=== PATIENT | male | born 1970 | race Caucasian/White ===

== ENCOUNTER → 2017-01-26 | Outpatient (REF) | payer OTHER | LOC: M SFHCPLAZ 17:08 | PROVIDERS: ATTEND Student in an Organized Health Care Education/Training Program | DX: L73.9 Follicular disorder, unspecified (principal); L02.213 Cutaneous abscess of chest wall; D36.7 Benign neoplasm of other specified sites ==

== ENCOUNTER → 2018-03-25 | Outpatient (CLI) | payer BC, OTHER | LOC: M WUC 15:17 | DX: M51.36 Other intervertebral disc degeneration, lumbar region (principal); M51.37 Other intervertebral disc degeneration, lumbosacral region | CPT/HCPCS: 72110 ==

== ENCOUNTER 2018-09-13 16:49 | Emergency (ER) | payer BC, OTHER ==
[2018-09-13] MEDS: MECLIZINE 25 MG TABLET PO (18:12)
[2018-09-13] MEDS: NS 1,000 ML IV (18:13)
[2018-09-13] MEDS: ONDANSETRON 4MG/2ML VIAL (J2405) IV (18:15)
[2018-09-13 18:31] LABS: BASO % 0.3 % (0.0-1.0); EOS # 0.2 10^3/uL (0.0-0.50); EOS % 2.6 % (0.0-3.0); HEMATOCRIT 45.8 % (42.0-52.0); HEMOGLOBIN 15.9 g/dl (13.5-17.5); IMMATURE GRANULOCYTE % 0.7 % (0-3.0); LYMPH # 1.5 10^3/uL (1.5-4.5); MEAN CORPUSCULAR HEMOGLOBIN 30.6 pg (27.0-33.0); MEAN CORPUSCULAR HGB CONC 34.7 g/dl (32.0-36.5); MEAN CORPUSCULAR VOLUME 88.1 fl (80.0-96.0); MONO # 0.5 10^3/uL (0.0-0.8); MONO % 8.9 % (0.0-5.0); NEUTROPHILS # 3.5 10^3/uL (1.8-7.7); NEUTROPHILS % 61.5 % (36.0-66.0); PLATELET COUNT, AUTOMATED 240 10^3/uL (150-450); RED CELL DISTRIBUTION WIDTH 11.6 % (11.5-14.5); WHITE BLOOD COUNT 5.7 10^3/uL (4.0-10.0)
[2018-09-13 19:01] LABS: ANION GAP 8 MEQ/L (8-16); BLOOD UREA NITROGEN 22 MG/DL (7-18); CALCIUM LEVEL 8.6 MG/DL (8.5-10.1); CARBON DIOXIDE LEVEL 28 MEQ/L (21-32); CHLORIDE LEVEL 102 MEQ/L (98-107); CREATININE FOR GFR 0.98 MG/DL (0.70-1.30); GLOMERULAR FILTRATION RATE > 60.0 (>56); GLUCOSE, FASTING 92 MG/DL (70-100); POTASSIUM SERUM 3.7 MEQ/L (3.5-5.1); SODIUM LEVEL 138 MEQ/L (136-145)
[2018-09-13 19:06] LABS: CPK CREATINE PHOSPHOKINASE 144 U/L (39-308); TROPONIN I < 0.02 NG/ML (< 0.10)
== END 2018-09-13 20:22 | disposition home or self-care (01) ==
LOC: M ED 16:49
DX: R03.0 Elevated blood-pressure reading, without diagnosis of hypertension (principal); R42 Dizziness and giddiness; R11.0 Nausea; M54.9 Dorsalgia, unspecified; Z88.0 Allergy status to penicillin
CPT/HCPCS: J2405

== ENCOUNTER → 2019-11-24 | Outpatient (CLI) | payer BC, OTHER ==
[~2019-11-24] MED LIST: LISI-542 PO; MECL-68 PO; ZOFR4TAB14 PO
--- NOTE | 2019-11-24 16:54 | REP ---
Two-view chest: 11/24/2019. Indication: Dyspnea. Comparison: 09/13/2018. Findings: The lungs are clear. There is no pleural effusion or pneumothorax. The cardiomediastinal silhouette is unremarkable. Impression: No acute cardiopulmonary process. Electronically Signed by Ash De La Rosa DO 11/24/2019 04:24 P
[2019-11-24 20:36] LABS: BASO # 0.1 10^3/uL (0.0-0.2); BASO % 0.9 % (0.0-1.0); EOS # 0.2 10^3/uL (0.0-0.5); EOS % 3.1 % (0.0-3.0); HEMOGLOBIN 15.5 g/dl (13.5-17.5); LYMPH # 2.1 10^3/uL (1.5-5.0); MEAN CORPUSCULAR HEMOGLOBIN 29.8 pg (27.0-33.0); MEAN CORPUSCULAR HGB CONC 33.7 g/dl (32.0-36.5); MEAN CORPUSCULAR VOLUME 88.5 fl (80.0-96.0); MONO # 0.5 10^3/uL (0.0-0.8); MONO % 8.9 % (0.0-5.0); NEUTROPHILS # 2.9 10^3/uL (1.5-8.5); NEUTROPHILS % 50.4 % (36.0-66.0); PLATELET COUNT, AUTOMATED 244 10^3/uL (150-450); WHITE BLOOD COUNT 5.8 10^3/uL (4.0-10.0)
[2019-11-24 20:48] LABS: ALBUMIN 3.9 GM/DL (3.2-5.2); ALT/SGPT 43 U/L (12-78); BILIRUBIN,TOTAL 0.4 MG/DL (0.2-1.0); BLOOD UREA NITROGEN 11 MG/DL (7-18); CALCIUM LEVEL 8.7 MG/DL (8.5-10.1); CARBON DIOXIDE LEVEL 29 MEQ/L (21-32); CHLORIDE LEVEL 105 MEQ/L (98-107); CREATININE FOR GFR 0.97 MG/DL (0.70-1.30); FREE T4 0.75 NG/DL (0.76-1.46); GLOMERULAR FILTRATION RATE > 60.0 (>56); GLUCOSE, FASTING 87 MG/DL (70-100); NT-PRO BNP 6 PG/ML (<125); POTASSIUM SERUM 4.3 MEQ/L (3.5-5.1); SODIUM LEVEL 140 MEQ/L (136-145); TOTAL PROTEIN 7.7 GM/DL (6.4-8.2)
== END ==
LOC: M WUC 16:10
PROVIDERS: ATTEND Physician Assistant
DX: R53.83 Other fatigue (principal); R06.02 Shortness of breath

== ENCOUNTER → 2020-06-12 | Outpatient (CLI) | payer BC, OTHER ==
[~2020-06-12] MED LIST changes: -MECL-68 PO; +MECL1TAB31 PO
[2020-06-12 17:38] LABS: BASO % 0.5 % (0.0-1.0); EOS # 0.1 10^3/uL (0.0-0.5); EOS % 2.4 % (0.0-3.0); HEMATOCRIT 46.5 % (42.0-52.0); HEMOGLOBIN 15.5 g/dl (13.5-17.5); LYMPH # 1.4 10^3/uL (1.5-5.0); LYMPH % 24.6 % (24.0-44.0); MEAN CORPUSCULAR HEMOGLOBIN 30.7 pg (27.0-33.0); MEAN CORPUSCULAR HGB CONC 33.3 g/dl (32.0-36.5); MEAN CORPUSCULAR VOLUME 92.1 fl (80.0-96.0); MONO # 0.6 10^3/uL (0.0-0.8); MONO % 10.1 % (0.0-5.0); NEUTROPHILS # 3.4 10^3/uL (1.5-8.5); PLATELET COUNT, AUTOMATED 224 10^3/uL (150-450); RED BLOOD COUNT 5.05 10^6/uL (4.30-6.10); WHITE BLOOD COUNT 5.5 10^3/uL (4.0-10.0)
[2020-06-12 17:41] LABS: ALBUMIN 3.9 GM/DL (3.2-5.2); ALT/SGPT 28 U/L (12-78); BILIRUBIN,TOTAL 0.5 MG/DL (0.2-1.0); BLOOD UREA NITROGEN 21 MG/DL (7-18); CALCIUM LEVEL 8.4 MG/DL (8.5-10.1); CARBON DIOXIDE LEVEL 30 MEQ/L (21-32); CHLORIDE LEVEL 104 MEQ/L (98-107); CREATININE FOR GFR 0.93 MG/DL (0.70-1.30); FREE T4 0.81 NG/DL (0.76-1.46); GLOMERULAR FILTRATION RATE > 60.0 (>56); GLUCOSE, FASTING 106 MG/DL (70-100); POTASSIUM SERUM 4.1 MEQ/L (3.5-5.1); SODIUM LEVEL 140 MEQ/L (136-145); TOTAL PROTEIN 7.3 GM/DL (6.4-8.2)
[2020-08-08 09:41] LABS: EBV AB TO NUCLEAR ANTIGEN SEE SEPARATE REPORT; EBV VIRAL CAPSID AG IgG SEE SEPARATE REPORT; EBV VIRAL CAPSID AG IgM SEE SEPARATE REPORT; Lyme Disease IgG/IgM Antibodie See Separate Report
== END ==
LOC: M WUC 13:22
PROVIDERS: ATTEND Nurse Practitioner Family
DX: S30.861A Insect bite (nonvenomous) of abdominal wall, initial encounter (principal); X58.XXXA Exposure to other specified factors, initial encounter; Y92.89 Other specified places as the place of occurrence of the external cause; M79.10 Myalgia, unspecified site; R53.83 Other fatigue

== ENCOUNTER → 2021-07-11 | Outpatient (CLI) | payer BC, OTHER ==
[~2021-07-11] MED LIST changes: -LISI-542 PO; +LISI-898 PO
[2021-07-11 16:55] LABS: BASO % 0.5 % (0.0-1.0); EOS # 0.1 10^3/uL (0.0-0.5); EOS % 1.9 % (0.0-3.0); HEMATOCRIT 47.4 % (42.0-52.0); HEMOGLOBIN 15.8 g/dl (13.5-17.5); LYMPH # 1.5 10^3/uL (1.5-5.0); LYMPH % 25.4 % (24.0-44.0); MEAN CORPUSCULAR HGB CONC 33.3 g/dl (32.0-36.5); MEAN CORPUSCULAR VOLUME 93.1 fl (80.0-96.0); MONO # 0.5 10^3/uL (0.0-0.8); MONO % 9.2 % (2.0-8.0); NEUTROPHILS # 3.6 10^3/uL (1.5-8.5); NEUTROPHILS % 62.3 % (36.0-66.0); PLATELET COUNT, AUTOMATED 216 10^3/uL (150-450); RED BLOOD COUNT 5.09 10^6/uL (4.30-6.10); WHITE BLOOD COUNT 5.7 10^3/uL (4.0-10.0)
[2021-07-11 17:27] LABS: ALBUMIN 3.9 GM/DL (3.2-5.2); ALT/SGPT 25 U/L (12-78); BILIRUBIN,TOTAL 0.7 MG/DL (0.2-1.0); BLOOD UREA NITROGEN 15 MG/DL (7-18); CALCIUM LEVEL 8.9 MG/DL (8.5-10.1); CARBON DIOXIDE LEVEL 30 MEQ/L (21-32); CHLORIDE LEVEL 107 MEQ/L (98-107); CREATININE FOR GFR 0.83 MG/DL (0.70-1.30); FREE T4 0.85 NG/DL (0.76-1.46); GLOMERULAR FILTRATION RATE > 60.0 (>56); GLUCOSE, FASTING 100 MG/DL (70-100); POTASSIUM SERUM 4.2 MEQ/L (3.5-5.1); SODIUM LEVEL 141 MEQ/L (136-145); TOTAL PROTEIN 7.6 GM/DL (6.4-8.2)
== END ==
LOC: M WUC 13:53
PROVIDERS: ATTEND Physician Assistant Medical
DX: R19.4 Change in bowel habit (principal)

== ENCOUNTER → 2021-08-06 | Outpatient (CLI) | payer BC, OTHER ==
[~2021-08-06] MED LIST changes: +GLUCAGON INJ 1MG VIAL As Ordered ONE; +ISOVUE-370 76% 100ML VIAL As Ordered ONE; +NEULUMEX 0.1% SUSPENSION 450ML BOTTLE (FORMERLY VOLUMEN) As Ordered ONE
--- NOTE | 2021-08-12 07:26 | REP ---
INDICATION: DIARRHEA ABN WT LOSS CHANGE IN BOWEL HABITS HAS LABS 1ST COMPARISON: None. TECHNIQUE: Axial contrast-enhanced images from the lung bases to the pubic symphysis with images obtained in arterial and portal venous phases of enhancement. Low-dose oral contrast material was administered prior to imaging. Coronal and sagittal reformations were obtained. This CT examination was performed using the following dose reduction techniques: Automated exposure control, adjustment of mA and/or kv according to the patient's size, and use of iterative reconstruction technique. FINDINGS: A small hiatal hernia is identified at the gastroesophageal junction. Stomach, small, and large bowel is otherwise relatively normal and without evidence for obstruction, mucosal thickening, stricture/stenosis, or focal area of adjacent fat stranding. Normal terminal ileum and appendix identified in the right lower quadrant. No free air or free fluid to suggest perforation. Liver includes subcentimeter cyst in the posterior right lobe. Spleen, pancreas, gallbladder, bilateral adrenal glands and kidneys are normal. The enteric system is without obstruction or acute inflammatory process. Normal terminal ileum and appendix are identified in the right lower quadrant. Pelvis demonstrates moderately enlarged prostate gland with mass effect on the base of the bladder. Small early fat containing inguinal hernias are suggested. No ascites. No free air. No adenopathy. Abdominal aorta without aneurysm or dissection. Surrounding musculoskeletal structures are intact. Lung bases are clear. IMPRESSION: 1. Small hiatal hernia. Otherwise normal appearance to the enteric system. 2. No acute abdominopelvic pathology appreciated. 3. Small early fat containing inguinal hernias noted. <Electronically signed by Nikita Butler > 08/12/21 0727
== END ==
LOC: M LAB 13:12
PROVIDERS: ATTEND Physician Assistant Medical
DX: R19.7 Diarrhea, unspecified (principal); R63.4 Abnormal weight loss; R19.4 Change in bowel habit
CPT/HCPCS: 74177; J1610; Q9967

== ENCOUNTER → 2021-08-14 | Outpatient (CLI) | payer BC, OTHER ==
[~2021-08-14] MED LIST changes: +E-Z-GAS II EFFERVESCENT PACKET (SODIUM BICARB./CITRIC ACID/SIMETHICONE) As Ordered ONE; +E-Z-HD 98% w/w 340GM SUSP BTL As Ordered ONE; +E-Z-PAQUE 96% w/w SUSP 176GM BTL As Ordered ONE; -GLUCAGON INJ 1MG VIAL As Ordered ONE; -ISOVUE-370 76% 100ML VIAL As Ordered ONE; -NEULUMEX 0.1% SUSPENSION 450ML BOTTLE (FORMERLY VOLUMEN) As Ordered ONE
--- NOTE | 2021-08-14 10:20 | REP ---
INDICATION: HEARTBURN, DYSPHAGIA. COMPARISON: None. TECHNIQUE: Real-time sonographic evaluation of the thyroid gland FINDINGS: The right lobe of the thyroid gland measures 4.6 x 1.6 x 1.4 cm and the left lobe measures 3.9 x 1.2 x 1.3 cm. The isthmus measures 5 mm. The thyroid parenchymal echo pattern is within normal limits. There are no cystic or solid masses. On scanning the right lobe of the thyroid gland the technologist noted lymph nodes. They are not enlarged. IMPRESSION: Thyroid ultrasonography is within normal limits. If a neck mass other than of thyroid origin is of clinical concern then a contrast-enhanced neck CT is recommended. <Electronically signed by Tico Tong > 08/14/21 1016
--- NOTE | 2021-08-14 16:00 | REP ---
INDICATION: HEARTBURN, DYSPHAGIA. COMPARISON: None. TECHNIQUE: This procedure was performed under the direct supervision of . Images were reviewed with Dr. Garcia. Liquid barium and gas producing granules were given in the erect position as well as liquid barium in the prone oblique positions in order to perform a double contrast esophagram examination. A combination of fluoroscopy, spot films and last image hold technology was utilized. 1 minute of fluoro time was utilized for this procedure. FINDINGS: A single view PA chest x-ray is submitted as a cigar patcher film. The superior mediastinal structures are midline. The heart size is within normal limits. The lungs are clear. The oral and pharyngeal stages of deglutition are unremarkable. Esophageal transport is prompt and efficient. In the distal esophagus there is irregular mucosa with possible tiny ulcers. Recommend endoscopy for further evaluation. There is a sliding-type hiatal hernia. Gastroesophageal reflux is not demonstrated on this examination. IMPRESSION: 1. In the distal esophagus there is irregular mucosa with possible tiny ulcers. Recommend endoscopy for further evaluation. 2. There is a sliding-type hiatal hernia. <Electronically signed by Gonzalez Aguilera > 08/14/21 1537 <Electronically signed by Alex Garcia > 08/14/21 1392
== END ==
LOC: M RAD 09:40
PROVIDERS: ATTEND Physician Assistant Medical
DX: R13.10 Dysphagia, unspecified (principal); R12 Heartburn

== ENCOUNTER → 2021-09-02 | Outpatient (CLI) | payer BC, OTHER ==
[~2021-09-02] MED LIST changes: -E-Z-GAS II EFFERVESCENT PACKET (SODIUM BICARB./CITRIC ACID/SIMETHICONE) As Ordered ONE; -E-Z-HD 98% w/w 340GM SUSP BTL As Ordered ONE; -E-Z-PAQUE 96% w/w SUSP 176GM BTL As Ordered ONE; +LOPE2TAB12 PO; +PANT40TA29 PO
== END ==
LOC: M LABSMTC 10:44
PROVIDERS: ATTEND Anesthesiology
DX: Z01.812 Encounter for preprocedural laboratory examination (principal); Z20.822 Contact with and (suspected) exposure to COVID-19

== ENCOUNTER 2021-09-06 11:49 | Day surgery (SDC) | payer BC, OTHER ==
[~2021-09-06] VITALS: Ht 167.6 cm; Wt 94.3 kg
[~2021-09-06 11:49] MED LIST changes: +NS 1,000 ML IV ONE
--- OUTSIDE RECORDS SUMMARY | 2021-09-06 11:53 | CCD | Continuity of Care Document ---
Author Author Kj LAURA [facility] Organization Unknown Address [address] [place] [address], [address] [place] [address] Phone [phone] Care Team Providers Care Electrical Design Technician Name Role Phone Sreekanth Mcmillan AUTM [phone] Lizzette Watson N.P AUTM [phone] Christine Hooker D.O. AUTM [phone] Problems Active Problems Provider Date Chronic maxillary sinusitis Wang Valle MD Onset: 02/26 Chronic ethmoidal sinusitis Wang Valle MD Onset: 02/26 Chronic rhinitis Wang Valle MD Onset: 02/27/2016 Hypertrophy of nasal turbinates Wang Valle MD Onset: 0 02/27/2016 Chronic rhinitis Wang Valle MD Onset: 02/27/2016 Chronic maxillary sinusitis Wang Valle MD Onset: 02/26 Chronic ethmoidal sinusitis Wang Valle MD Onset: 02/26 Hypertrophy of nasal turbinates Wang Valle MD Onset: 0 02/27/2016 Deviated nasal septum Wang Valle MD Onset: 05/30/2016 Nasal polyp Wang Valle MD Onset: 05/30/2016 Social History Type Date Description Comments Sex Unknown ETOH Use 4 A Day Tobacco Use Start: Unknown Quit Recreational Drug Use Denies Drug Use Allergies, Adverse Reactions, Alerts Active Allergies Criticality Reaction | Severity Comments Date Penicillins Unable to assess criticality hives/hypert ension 08/02/2009 Medications Active Medications SIG Qnty Indications Ordering Provide r Date Protonix 40mg Tablets DR take 1 tablet by mouth daily. 30tabs R13.10 Mohsen Collins MD 07/11/2021 Suprep Bowel Prep Kit 17.5-3.13-1.6GM/177ML Solution take per doctor's bowel prep instructions. 354ml R19.4 Mohsen Collins MD 07/11/[address] take 4 tabs by mouth prior to procedure per instructions. 4tabs R19.4 Mohsen Collins MD 07/11/2021 Cyclobenzaprine HCL 10mg Tablets prn Unknown Naproxen 500mg Tablets DR prn Unknown Immunizations Description No Information Available Vital Signs Date Vital Result Comment 07/11/2021 12:49pm BP Systolic 152 mmHg BP Diastolic 92 mmHg Height 66 inches 5'6" Weight 205.00 lb BMI (Body Mass Index) 33.1 kg/m2 [place] Body Weight 142 lb Weight 92.988 kg BSA (Body Surface Area) 2.02 m2 09/15/2016 11:12am Height 66 inches 5'6" Weight 218.00 lb BMI (Body Mass Index) 35.2 kg/m2 [place] Body Weight 142 lb Weight 98.885 kg BSA (Body Surface Area) 2.07 m2 Results Description No Information Available Procedures Description No Information Available Medical Devices Description No Information Available Encounters Description No Information Available Assessments Date Code Description Provider 07/11/2021 R13.10 Dysphagia, unspecified Juidt Peterson [place] 07/11/2021 R12 Heartburn Judit Peterson [place] Farmer 07/11/2021 R19.4 Change in bowel habit Judit [place] Fajardo 07/11/2021 R63.4 Abnormal weight loss Judit Peterson Leah clifton [facility] Plan of Treatment 07/11/2021 - [facility] Peterson [facility] R13.10 Dysphagia, unspecified * R12 Heartburn * R19.4 Change in bowel habit * R63.4 Abnormal weight loss * * New Medication:* Protonix 40 mg * New Orders:* Endoscopy, Ordered: 07/11/21 * Comments:* Will arrange for upper endoscopy with possible dilation and colonoscopy. Reviewed risks and benefits of the procedures, as well as other options, with the patient. Prep for this procedure was discussed with patient, including risks and side effects associated with the prep. Patient verbalized understanding of all of the above and is in agreement to proceed. Patient will seek medical attention for any acute changes. Will monitor. * Follow up:* 2 weeks after procedures, sooner if needed. Functional Status Description No Information Available Mental Status Description No Information Available Referrals Refer to Reason for Referral Status Appt Date Yao Sanchez M.D. DYSPHAGIA/LUMP IN THROAT Scheduled 07/11/2021 [facility]-[address], [place] [id number] [phone]
--- OUTSIDE RECORDS SUMMARY | 2021-09-06 11:53 | CCD | Continuity of Care Document ---
Author Author Kj [facility] Organization Unknown Address [address] [place] [address], [address] [place] [address] Phone [phone] Care Team Providers Care Business Project Manager Name Role Phone Sreekanth Mcmillan AUTM [phone] Lizzette Watson N.P AUTM [phone] Christine Hooker D.O. AUTM [phone] Problems Active Problems Provider Date Chronic maxillary [...] Unknown Naproxen 500mg Tablets DR prn Unknown Imodium A-D 2mg Tablets take 1 tablet by mouth as directed. Unknown Immunizations Description No Information Available Vital Signs Date Vital Result Comment 07/11/2021 12:49pm BP Systolic 152 mmHg BP Diastolic 92 mmHg Height 66 inches 5'6" Weight 205.00 lb BMI (Body Mass Index) 33.1 kg/m2 [place] Body Weight 142 lb Weight 92.988 kg BSA (Body Surface Area) 2.02 m2 09/15/2016 11:12am Height 66 inches 5'6" Weight 218.00 lb BMI (Body Mass Index) 35.2 kg/m2 [place] Body Weight 142 lb Weight 98.885 kg BSA (Body Surface Area) 2.07 m2 Results Test Acquired Date Facility Test Result H/L Range Note CBC With Differential 07/11/2021 [facility] Main Lab [address] [place] [id number] [phone] White Blood Count 5.7 10 Normal 4.0-10.0 Red Blood Count 5.09 10 Normal 4.30-6.10 Hemoglobin 15.8 g/dL Normal 13.5-17.5 Hematocrit 47.4 % Normal 42.0-52.0 Mean Corpuscular Volume 93.1 fl Normal 80.0-96.0 Mean Corpuscular Hemoglobin 31.0 pg Normal 27.0-33.0 Mean Corpuscular HGB Conc 33.3 g/dL Normal 32.0-36.5 Red Cell Distribution Width 11.9 % Normal 11.5-14.5 Platelet Count, Automated 216 10 Normal 150-450 Neutrophils % 62.3 % Normal 36.0-66.0 Lymph % 25.4 % Normal 24.0-44.0 Bacon % 9.2 % High 2.0-8.0 Eos % 1.9 % Normal 0.0-3.0 Baso % 0.5 % Normal 0.0-1.0 Immature Granulocyte % 0.7 % Normal 0-3.0 Nucleated Red Blood Cell % 0.0 % Normal 0-0 Neutrophils # 3.6 10 Normal 1.5-8.5 Lymph # 1.5 10 Normal 1.5-5.0 Bacon # 0.5 10 Normal 0.0-0.8 Eos # 0.1 10 Normal 0.0-0.5 Baso # 0.0 10 Normal 0.0-0.2 1 Comprehensive Metabolic Profil 07/11/2021 [facility] Main Lab [address] [place] [address] [phone] Glucose, Fasting 100 mg/dL Normal 70-100 Blood Urea Nitrogen 15 mg/dL Normal 7-18 Creatinine For GFR 0.83 mg/dL Normal 0.70-1.30 Glomerular Filtration Rate > 60.0 Normal >56 2 Sodium Level 141 mEq/L Normal 136-145 Potassium Serum 4.2 mEq/L Normal 3.5-5.1 Chloride Level 107 mEq/L Normal 98-107 Carbon Dioxide Level 30 mEq/L Normal 21-32 Anion Gap 4 mEq/L Low 8-16 Calcium Level 8.9 mg/dL Normal 8.5-10.1 Ast/Sgot 14 U/L Normal 7-37 Alt/SGPT 25 U/L Normal 12-78 Alkaline Phosphatase 52 U/L Normal 45-117 Bilirubin,Total 0.7 mg/dL Normal 0.2-1.0 Total Protein 7.6 GM/DL Normal 6.4-8.2 Albumin 3.9 GM/DL Normal 3.2-5.2 Albumin/Globulin Ratio 1.1 Normal 3 FT4&TSH Panel 07/11/2021 [facility] nter Main Lab [address] [place] [address] [phone] Thyroid Stimulating Hormone 2.500 uIU/ML Normal 0. 358-3.740 Free T4 0.85 ng/dL Normal 0.76-1.46 4 1 07/27/21 (Sat Sep 4) 04:27 P M MEDINA LAURA No significant abnormalities. 2 Units are mL/min/1.73 m2 Chronic Kidney Disease Staging per NKF: Stage I & II GFR >=60 Normal to Mildly Decreased Stage III GFR 30-59 Moderately Decreased Stage IV GFR 15-29 Severely Decreased Stage V GFR <15 Very Little GFR Left ESRD GFR <15 on ROUTE CLERK 3 07/27/21 (Sat Sep 4) 04:27 P M MEDINA LAURA No significant abnormalities. 4 07/27/21 (Sat Sep 4) 04:28 P M MEDINA SMITHJEAN PAULKURT Thyroid function is normal. Procedures Date Code Description Status 07/11/2021 34632 Office/Outpatient New Moderate M DM 45-59 Minutes Completed Medical Devices Description No Information Available Encounters Type Date Location Provider Dx Diagnosis Office Visit 07/11/2021 1:00p [facility] [place] R13.10 Dysphagia, unspecified R12 Heartburn R19.4 Change in bowel habit R63.4 Abnormal weight loss Assessments Date Code Description Provider 07/11/2021 R13.10 Dysphagia, unspecified [place] Wilkes 07/11/2021 R12 Heartburn [place] Fu 07/11/2021 R19.4 Change in bowel habit [place] 07/11/2021 R63.4 Abnormal weight loss [place] Delgado Plan of Treatment Future Appointment(s):* 09/06/2021 2:00 am - Yao Sanchez M.D. at [facility] 07/11/2021 - [place]* R13.10 Dysphagia, unspecified * R12 Heartburn * R19.4 Change in bowel habit * R63.4 Abnormal weight loss * * New Medication:* Protonix 40 mg * New Xrays:* Barium Swallow, Esophagram, Scheduled: 08/14/21 * Ultrasound Head And Neck Soft Tissues, Scheduled: 08/14/21 * New Orders:* Endoscopy with possible dilation, Ordered: 07/11/21 * Comments:* Will arrange for [...] Sanchez M.D. DYSPHAGIA/LUMP IN THROAT Scheduled 07/11/2021 [facility]-[address], [place] [address] [phone]
--- OUTSIDE RECORDS SUMMARY | 2021-09-06 11:53 | CCD | Continuity of Care Document ---
Author Author Kj COLLINS MD Organization Unknown Address [address] [place] [address] Phone [phone] Care Team Providers Care Upkeep Mechanic Name Role Phone Sreekanth Mcmillan AUTM [phone] Lizzette Watson N.P AUTM [phone] Christine Hooker D.O. AUTM [phone] Problems Active Problems Provider Date Chronic maxillary [...] A Day Tobacco Use Start: Unknown Quit [id number] Recreational Drug Use Denies Drug Use Allergies, Adverse Reactions, Alerts Active Allergies Criticality Reaction | Severity Comments Date Penicillins Unable to assess criticality hives/hypert ension 08/02/2009 Medications Active Medications SIG Qnty Indications Ordering Provide r Date Protonix 40mg Tablets DR take 1 tablet by mouth daily. 30tabs R13.10 Mohsne Collins MD 07/11/2021 Suprep Bowel Prep Kit 17.5-3.13-1.6GM/177ML Solution take per doctor's bowel prep instructions. 354ml R19.4 Mohsen Collins MD 07/11/2021 Dulcolax 5mg Tablets take 4 tabs by mouth prior to procedure per instructions. 4tabs R19.4 Mohsen Collins MD 07/11/2021 Cyclobenzaprine HCL 10mg Tablets prn Unknown Naproxen 500mg Tablets DR prn Unknown Immunizations Description No Information Available Vital Signs Date Vital Result Comment 07/11/2021 12:49pm BP Systolic 152 mmHg BP Diastolic 92 mmHg Height 66 inches 5'6" Weight 205.00 lb BMI (Body Mass Index) 33.1 kg/m2 [place] Body Weight 142 lb Weight 92.988 kg BSA (Body Surface Area) 2.02 m2 09/15/2016 11:12am Height 66 inches 5'6" Weight 218.00 lb BMI (Body Mass Index) 35.2 kg/m2 [place] Body Weight 142 lb Weight 98.885 kg BSA (Body Surface Area) 2.07 m2 Results Test Acquired Date Facility Test Result H/L Range Note CBC With Differential 07/11/2021 [facility] Main Lab [address] [place] [address] [phone] White Blood Count 5.7 10 Normal 4.0-10.0 [...] 36.0-66.0 Lymph % 25.4 % Normal 24.0-44.0 [place] % 9.2 % High 2.0-8.0 Eos % 1.9 % Normal 0.0-3.0 Baso % 0.5 % Normal 0.0-1.0 Immature Granulocyte % 0.7 % Normal 0-3.0 Nucleated Red Blood Cell % 0.0 % Normal 0-0 Neutrophils # 3.6 10 Normal 1.5-8.5 Lymph # 1.5 10 Normal 1.5-5.0 Jenkins # 0.5 10 Normal 0.0-0.8 Eos # 0.1 10 Normal 0.0-0.5 Baso # 0.0 10 Normal 0.0-0.2 1 Comprehensive Metabolic Profil 07/11/2021 [facility] Main Lab [address] [place] [address] [phone] Glucose, Fasting 100 mg/dL Normal 70-100 Blood [...] Ratio 1.1 Normal 3 FT4&TSH Panel 07/11/2021 [facility] nter Main Lab [address] [place] [address] [phone] Thyroid Stimulating Hormone 2.500 uIU/ML Normal 0. 358-3.740 Free T4 0.85 ng/dL Normal 0.76-1.46 4 1 07/27/21 (Sat Sep 4) 04:27 P M JUDIT SMITHMARIETTA No significant abnormalities. 2 Units are mL/min/1.73 m2 Chronic Kidney Disease Staging per NKF: Stage I & II GFR >=60 Normal to Mildly Decreased Stage III GFR 30-59 Moderately Decreased Stage IV GFR 15-29 Severely Decreased Stage V GFR <15 Very Little GFR Left ESRD GFR <15 on PRODUCT CONTROL AND LOGISTICS ANALYST 3 07/27/21 (Sat Sep 4) 04:27 P M JUDIT LAURA No significant abnormalities. 4 07/27/21 (Sat Sep 4) 04:28 P M JUDIT LAURA Thyroid function is normal. Procedures Description No Information Available Medical Devices Description No Information Available Encounters Description No Information Available Assessments Date Code Description Provider 07/11/2021 R13.10 Dysphagia, unspecified Judit Almanza[place] richard 07/11/2021 R12 Heartburn Judit guaman[place] 07/11/2021 R19.4 Change in bowel habit Judti Peterson [place] Laura 07/11/2021 R63.4 Abnormal weight loss Juditgabo Lynn [place] clif[place] Plan of Treatment Future Appointment(s):* 09/06/2021 2:00 am [facility] 07/[facility]21 - Judit Nicholas [place] Laura* R13.10 Dysphagia, unspecified * R12 Heartburn * R19.4 Change in bowel habit * R63.4 Abnormal weight loss * * New Medication:* Protonix 40 mg * New Xrays:* Barium Swallow, Esophagram, Ordered: 07/11/21 * Ultrasound Head And Neck Soft Tissues, Ordered: 07/11/21 * New Orders:* Endoscopy with possible dilation, [...] Sanchez M.D. DYSPHAGIA/LUMP IN THROAT Scheduled 07/11/2021 [facility] [address] [facility] [place], [address] [place] [address] [phone]
--- OUTSIDE RECORDS SUMMARY | 2021-09-06 11:53 | CCD ---
Author Author [facility] Organization [facility] Address Unknown Phone Unavailable Care Team Providers Care Rolls Baker Name Role Phone Watson, Lizzette CREDIT SUPPORT COUNSELOR Unavailable Unavailable Watson, Lizzette CREDIT SUPPORT COUNSELOR Unavailable Unavailable Watson, Lizzette CREDIT SUPPORT COUNSELOR Unavailable Unavailable Watson, Lizzette CREDIT SUPPORT COUNSELOR Unavailable Unavailable Watson, Lizzette CREDIT SUPPORT COUNSELOR Unavailable Unavailable Watson, Lizzette CREDIT SUPPORT COUNSELOR Unavailable Unavailable Watson, Lizzette CREDIT SUPPORT COUNSELOR Unavailable Unavailable Watson, Lizzette CREDIT SUPPORT COUNSELOR Unavailable Unavailable Watson, Lizzette CREDIT SUPPORT COUNSELOR Unavailable Unavailable Watson, Lizzette CREDIT SUPPORT COUNSELOR Unavailable Unavailable Watson, Lizzette CREDIT SUPPORT COUNSELOR Unavailable Unavailable Watson, Lizzette CREDIT SUPPORT COUNSELOR Unavailable Unavailable Watson, Lizzette CREDIT SUPPORT COUNSELOR Unavailable Unavailable Charlebois, A Judit RPA C Unavailable Unavailable Charlebois, A Judit RPA C Unavailable Unavailable Charlebois, A Judit RPA C Unavailable Unavailable Charlebois, A Judit RPA C Unavailable Unavailable Charlebois, A Judit RPA C Unavailable Unavailable Charlebois, A Judit RPA C Unavailable Unavailable Charlebois, A Judit RPA C Unavailable Unavailable Charlebois, A Judit RPA C Unavailable Unavailable Charlebois, A Judit RPA C Unavailable Unavailable Charlebois, A Judit RPA C Unavailable Unavailable Charlebois, A Judit RPA C Unavailable Unavailable Charlebois, A Judit RPA C Unavailable Unavailable Charlebois, A Judit RPA C Unavailable Unavailable Charlebois, A Judit RPA C Unavailable Unavailable Charlebois, A Judit RPA C Unavailable Unavailable Charlebois, A Judit RPA C Unavailable Unavailable Charlebois, A Judit RPA C Unavailable Unavailable Charlebois, A Judit RPA C Unavailable Unavailable Charlebois, A Judit RPA C Unavailable Unavailable Charlebois, A Judit RPA C Unavailable Unavailable Charlebois, A Judit RPA C Unavailable Unavailable Charlebois, A Judit RPA C Unavailable Unavailable Charlebois, A Judit RPA C Unavailable Unavailable Charlebois, A Judit RPA C Unavailable Unavailable Charlebois, A Judit RPA C Unavailable Unavailable Charlebois, A Judit RPA C Unavailable Unavailable Charlebois, A Judit RPA C Unavailable Unavailable Charlebois, A Judit RPA C Unavailable Unavailable Charlebois, A Judit RPA C Unavailable Unavailable Charlebois, A Judit RPA C Unavailable Unavailable Charlebois, A Judit RPA C Unavailable Unavailable Charlebois, A Judit RPA C Unavailable Unavailable Charlebois, A Judit RPA C Unavailable Unavailable Re-disclosure Warning The records that you are about to access may contain information from federally-assisted alcohol or drug abuse programs. If such information is present, then the following federally mandated warning applies: This information has been disclosed to you from records protected by federal confidentiality rules (42 CFR part 2). The federal rules prohibit you from making any further disclosure of this information unless further disclosure is expressly permitted by the written consent of the person to whom it pertains or as otherwise permitted by 42 CFR part 2. A general authorization for the release of medical or other information is NOT sufficient for this purpose. The Federal rules restrict any use of the information to criminally investigate or prosecute any alcohol or drug abuse patient.The records that you are about to access may contain highly sensitive health information, the redisclosure of which is protected by Article 27-F of the [facility] Public Health law. If you continue you may have access to information: Regarding HIV / AIDS; Provided by facilities licensed or operated by the [facility] Office of Mental Health; or Provided by the [facility] Office for People With Developmental Disabilities. If such information is present, then the following [facility] mandated warning applies: This information has been disclosed to you from confidential records which are protected by state law. State law prohibits you from making any further disclosure of this information without the specific written consent of the person to whom it pertains, or as otherwise permitted by law. Any unauthorized further disclosure in violation of state law may result in a fine or mcc sentence or both. A general authorization for the release of medical or other information is NOT sufficient authorization for further disc losure. Family History Family Member Name Family Member Gender Family Member Status Date o f Status Description Data Source(s) Unknown Unknown Problem [facility] ([facility]) Unknown Male Problem [facility] ([facility]) Unknown Unknown Problem [facility] ([facility], ) Unknown Unknown Problem MED[facility] (José Grajeda MD, ) Encounters Encounter Providers Location Date Indications Data Source(s ) Outpatient Attender: Judit Valle/Liudmila/Nicholas noland/Karina 07/11/2021 01:00:00 PM EDT [facility] ([facility]ia [facility]lier, ) Outpatient Attender: Lizzette jimenez 05/06/2021 01:10:00 PM EDT [facility] ([facility]) Immunizations Vaccine Date Status Description Data Source(s) COVID-19 VACCINE Moderna 04/10/2021 12:00:00 AM EDT completed DCSIIS Vaccine Series Complete: NOThis Data was Submitted to [facility] Via [facility]. Medications Medication Brand Name Start Date Product Form Dose Route Admi nistrative Instructions Pharmacy Instructions Status Indications Reaction Description Data Source(s) pantoprazole 40 MG Delayed Release Oral Tablet PANTOPRAZOLE SODIUM 07/11/2021 12:00:00 AM EDT tablet,delayed release (DR/EC) 30 T MAXIMO ONE TABLET BY MOUTH EVERY DAY TAKE ONE TABLET BY MOUTH EVERY DAY SOLD: 07/11/2021 [facility] SUPREP BOWEL PREP KIT 17.5-3.13-1.6 gram SODIUM, POTASSIUM,M AG SULFATES 07/11/2021 12:00:00 AM EDT recon soln 354 TAKE PER DOCTORS BOWEL PREP INSTRUCTIONS TAKE PER DOCTORS BOWEL PREP INSTRUCTIONS SOLD: 07/11/2021 [facility] pantoprazole 40 MG Delayed Release Oral Tablet PANTOPRAZOLE SODIUM 07/11/2021 12:00:00 AM EDT tablet,delayed release (DR/EC) 30 T MAXIMO ONE TABLET BY MOUTH EVERY DAY TAKE ONE TABLET BY MOUTH EVERY DAY SOLD: 09/03/2021 [facility] Suprep Bowel Prep Kit Suprep Bowel Prep Kit 07/11/2021 12:00:00 AM EDT active MED[facility] ([facility], ) pantoprazole 40 MG Delayed Release Oral Tablet [Protonix] Pr otonix 07/11/2021 12:00:00 AM EDT ORAL active M EDENT ([facility], ) Bisacodyl 5 MG Delayed Release Oral Tablet [Dulcolax] Dulcol ax 07/11/2021 12:00:00 AM EDT ORAL active M EDENT ([facility], ) Omeprazole 20 MG Delayed Release Oral Capsule Omeprazole 05/06/2021 12:00:00 AM EDT ORAL active MED[facility] ([facility]) Insurance Providers Payer name Policy type / Coverage type Policy ID Covered constitution party ID Covered constitution party's relationship to arora Policy Arora Plan Information State Ins [facility] () Workers Compensation [id number] Self [id number] [place] [facility] Health Maintenance Organization (HMO) [id number] Self [id number] [place] Plan F [id number] SELF [id number] [place] Plan F [id number] SELF [id number] [place] Plan F [id number] SELF [id number] [place] Plan F [id number] SELF [id number] [place] Plan F [id number] SELF [id number] [facility] [id number] SP [id number] BCBS EMPIRE MICHELLE DIV [id number] SP [id number] [employer] O [id number] S [id number] [facility] [place] Commercial [id number] Self [id number] [facility] [place] Commercial [id number] Self [id number] [facility] [place] Commercial [id number] Self [id number] [facility]IRE [facility]P [id number] 18 [id number] [facility] [place] Health Maintenance Organization (HMO) [id number] Self [id number] [facility] [place] Health Maintenance Organization (HMO) [id number] Self [employer] [id number] SP [id number] BCBS EMPIRE [place] DIV [id number] SP [id number] [employer] [id number] SP [id number] [facility] Health Maintenance Organization (HMO) [id number] Self BCBS EMPIRE MICHELLE DIV [id number] SP [id number] EMPIRE BLUE CROSS BLUE SHIELD -O/P [id number] 18 [id number] EMPIRE BLUE CROSS BLUE SHIELD -O/P [id number] 18 [id number] EMPIRE (STATE EMP) P [id number] S [id number] BCBS EMPIRE MICHELLE DIV [id number] SP [id number] [facility] [id number] SP [id number] BCBS EMPIRE MICHELLE DIV [id number] SP [id number] [facility] [place] Commercial [id number] Self [id number] [facility] O [id number] S [id number] [facility] O [id number] S [id number] [facility] [id number] SP [id number] Problems, Conditions, and Diagnoses No Information Surgeries/Procedures Procedure Description Date Indications Data Source(s) OFFICE OUTPATIENT NEW 45 MINUTES 07/11/2021 12:00:00 A M EDT [facility] ([facility]) Results ID Date Data Source [id number] 07/11/2021 01:55:00 PM EDT [facility] ([facility]) Name Value Range Interpretation Code Description Data Priscilla rce(s) Supporting Document(s) Thyroid Stimulating Hormone 2.500 uIU/ML 0.358-3.740 Norm al (applies to non- numeric results) [facility] ([facility]) Free T4 0.85 ng/dL 0.76-1.46 Normal (applies to non-numeric resul ts) [facility]) 07/27/21 (Sat Sep 4) 04:28 PM JUDIT SHEIKH Thyroid function is normal. ID Date Data Source [id number] 07/11/2021 01:55:00 PM EDT [facility] ([facility]) Name Value Range Interpretation Code Description Data Priscilla rce(s) Supporting Document(s) Glucose, Fasting 100 mg/dL 70-100 Normal (applies to non-numeric results) [facility] ([facility]) Blood Urea Nitrogen 15 mg/dL 7-18 Normal (applies to non-nume reilly results) [facility]) Creatinine For GFR 0.83 mg/dL 0.70-1.30 Normal (applies to non -numeric results) [facility]) Sodium Level 141 meq/L 136-145 Normal (applies to non-numeric res ults) [facility]) Glomerular Filtration Rate Laboratory test result Normal (applies to non- numeric results) [facility]) <content>Units are mL/min/1.73 m2</content>
<content></content>
<content>Chronic Kidney Disease Staging per NKF:</content>
<content></content>
<content>Stage I & II GFR >=60 Normal to Mildly Decreased</content>
<content>Stage III GFR 30- 59 Moderately Decreased</content>
<content>Stage IV GFR 15-29 Severely Decreased</content>
<content>Stage V GFR <15 Very Little GFR Left</content>
<content>ESRD GFR <15 on MECHANICAL CAR CHECKER</content>
<content></content> Chloride Level 107 meq/L 98-107 Normal (applies to non-numeric r esults) [facility] ([facility], ) Potassium Serum 4.2 meq/L 3.5-5.1 Normal (applies to non-numeric results) [facility] ([facility], ) Anion Gap 4 meq/L 8-16 Below low normal [facility] ( [facility], ) Carbon Dioxide Level 30 meq/L 21-32 Normal (applies to non-num puma results) [facility] ([facility], ) Ast/Sgot 14 U/L 7-37 Normal (applies to non-numeric resul ts) [facility] ([facility], ) Calcium Level 8.9 mg/dL 8.5-10.1 Normal (applies to non-numeric re sults) [facility], ) Bilirubin,Total 0.7 mg/dL 0.2-1.0 Normal (applies to non-numeric results) [facility] ([facility], ) Alt/SGPT 25 U/L 12-78 Normal (applies to non-numeric resul ts) [facility] ([facility], ) Alkaline Phosphatase 52 U/L 45-117 Normal (applies to non-num puma results) [facility] ([facility], ) Albumin 3.9 GM/DL 3.2-5.2 Normal (applies to non-numeric resul ts) [facility] ([facility], ) Total Protein 7.6 GM/DL 6.4-8.2 Normal (applies to non-numeric re sults) [facility] ([facility]) Albumin/Globulin Ratio 1.1 Normal (applies to non-n umeric results) [facility]) 07/27/21 (Sat Sep 4) 04:27 PM JUDIT SHEIKH No significant abnormalities. ID Date Data Source [id number] 07/11/2021 01:55:00 PM EDT [facility]) Name Value Range Interpretation Code Description Data Priscilla rce(s) Supporting Document(s) Red Blood Count 5.09 10 4.30-6.10 Normal (applies to non-numeric results) [facility]) White Blood Count 5.7 10 4.0-10.0 Normal (applies to non-numeri c results) [facility]) Hemoglobin 15.8 g/dL 13.5-17.5 Normal (applies to non-numeric resul ts) [facility]) Hematocrit 47.4 % 42.0-52.0 Normal (applies to non-numeric resul ts) [facility]) Mean Corpuscular Hemoglobin 31.0 pg 27.0-33.0 Norm al (applies to non-numeric results) [facility]) Mean Corpuscular Volume 93.1 fl 80.0-96.0 Normal ( applies to non-numeric results) [facility]) Mean Corpuscular HGB Conc 33.3 g/dL 32.0-36.5 Normal (applies to non-numeric results) [facility]) Red Cell Distribution Width 11.9 % 11.5-14.5 Norm al (applies to non-numeric results) [facility]) Platelet Count, Automated 216 10 150-450 Normal (applies to non-numeric results) [facility]) Lymph % 25.4 % 24.0-44.0 Normal (applies to non-numeric resul ts) [facility]) Neutrophils % 62.3 % 36.0-66.0 Normal (applies to non-numeric re sults) [facility] ([facility], ) [place] % 9.2 % 2.0-8.0 Above high normal [facility] ([facility]) Eos % 1.9 % 0.0-3.0 Normal (applies to non-numeric resul ts) [facility] ([facility]) Immature Granulocyte % 0.7 % 0-3.0 Normal (applies to non-n umeric results) [facility]) Baso % 0.5 % 0.0-1.0 Normal (applies to non-numeric resul ts) [facility] ([facility]) Neutrophils # 3.6 10 1.5-8.5 Normal (applies to non-numeric re sults) [facility] ([facility]) Nucleated Red Blood Cell % 0.0 % 0-0 Normal (applies to n on-numeric results) [facility] ([facility]) [place] # 0.5 10 0.0-0.8 Normal (applies to non-numeric resul ts) [facility] ([facility]) Lymph # 1.5 10 1.5-5.0 Normal (applies to non-numeric resul ts) [facility] ([facility]) Eos # 0.1 10 0.0-0.5 Normal (applies to non-numeric resul ts) [facility]) Baso # 0.0 10 0.0-0.2 Normal (applies to non-numeric resul ts) [facility]) 07/27/21 ([facility] Jul 27) 04:27 PM JUDIT SHEIKH No significant abnormalities. Procedure Social History No Information Vital Signs ID Date Data Source UNK Name Value Range Interpretation Code Description Data Source(s) Systolic blood pressure 152 mm[Hg] 152 mm[Hg] M [facility] ([facility]) Diastolic blood pressure 92 mm[Hg] 92 mm[Hg] [facility] ([facility]) Body height 66 [in_i] 66 [in_i] [facility] ([facility]) 5'6" Body weight 205.00 [lb_av] 205.00 [lb_av] [facility] T ([facility]) Body mass index (BMI) [Ratio] 33.1 kg/m2 33.1 k g/m2 [facility] [place] body weight 142 [lb_av] 142 [lb_av] [facility] T ([facility]) Body weight 92.988 kg 92.988 kg [facility] ([facility]) Body surface area Derived from formula 2.02 m2 2.02 m2 [facility] ([facility]) Systolic blood pressure 162 mm[Hg] 162 mm[Hg] [facility]) Diastolic blood pressure 99 mm[Hg] 99 mm[Hg] [facility] ([facility]) Systolic blood pressure 168 mm[Hg] 168 mm[Hg] [facility]) Respiratory rate 20 /min 20 /min [facility] ( [facility], [facility]) Diastolic blood pressure 116 mm[Hg] 116 mm[Hg] [facility] ([facility]) Oxygen saturation in Arterial blood by Pulse oximetry 97 % 97 % [facility] ([facility], [facility]) Body temperature 96.9 [degF] 96.9 [degF] [facility] ([facility], [facility]) Body height 66 [in_i] 66 [in_i] [facility] ([facility]) 5'6" Body weight 225.00 [lb_av] 225.00 [lb_av] [facility] ([facility], [facility]) Heart rate 94 /min 94 /min [facility] ([facility], [facility]) Body mass index (BMI) [Ratio] 36.3 kg/m2 36.3 k g/m2 [facility] ([facility])
[2021-09-06] MEDS ORDERED: fentaNYL 100 MCG/2 ML INJECTION (J3010) As Ordered ONE (13:35)
[2021-09-06] MEDS ORDERED: LIDOCAINE 2% 100MG/5ML SDV (FOR ANES.) As Ordered ONE (13:35)
[2021-09-06] MEDS ORDERED: propofoL 200 MG/20 ML VIAL As Ordered ONE ×3 (13:35→14:43)
--- NOTE | 2021-09-06 14:51 | ROOR ---
Patient Name: Kj Alfred Procedure Date: 09/06/2021 1:52 PM Date of : 1970 Age: 51 Room: [facility] Gender: Male Note Status: Finalized Procedure: Upper GI endoscopy Indications: Dyspepsia, Dysphagia Providers: Yao Sanchez MD Referring MD: 1. NO/Unknown PCP 1. NO/Unknown PCP, Admin. Requesting Provider: Medicines: Monitored Anesthesia Care Complications: No immediate complications. Procedure: Pre-Anesthesia Assessment: - Prior to the procedure, a History and Physical was performed, and patient medications and allergies were reviewed. The patient is competent. The risks and benefits of the procedure and the sedation options and risks were discussed with the patient. All questions were answered and informed consent was obtained. Patient identification and proposed procedure were verified by the physician, the nurse and the anesthesiologist in the procedure room. Mental Status Examination: alert and oriented. Airway Examination: normal oropharyngeal airway and neck mobility. Respiratory Examination: clear to auscultation. CV Examination: normal. Prophylactic Antibiotics: The patient does not require prophylactic antibiotics. Prior Anticoagulants: The patient has taken no previous anticoagulant or antiplatelet agents. ASA Grade Assessment: II - A patient with mild systemic disease. After reviewing the risks and benefits, the patient was deemed in satisfactory condition to undergo the procedure. The anesthesia plan was to use monitored anesthesia care (MAC). Immediately prior to administration of medications, the patient was re-assessed for adequacy to receive sedatives. The heart rate, respiratory rate, oxygen saturations, blood pressure, adequacy of pulmonary ventilation, and response to care were monitored throughout the procedure. The physical status of the patient was re-assessed after the procedure. The Endoscope was introduced through the mouth, and advanced to the second part of duodenum. The upper GI endoscopy was accomplished without difficulty. The patient tolerated the procedure well. Findings: LA Grade C (one or more mucosal breaks continuous between tops of 2 or more mucosal folds, less than 75% circumference) esophagitis with no bleeding was found in the distal esophagus. Biopsies were taken with a cold forceps for histology. Verification of patient identification for the specimen was done by the physician and nurse using the patient's name, date and medical record number. Estimated blood loss was minimal. A medium-sized hiatal hernia was present. One benign-appearing, intrinsic moderate (circumferential scarring or stenosis; an endoscope may pass) stenosis was found in the distal esophagus. This stenosis measured 1.2 cm (inner diameter). The stenosis was traversed. A TTS dilator was passed through the scope. Dilation with a 15-16.5-18 mm balloon dilator was performed to 18 mm. The dilation site was examined and showed moderate improvement in luminal narrowing, no bleeding and no perforation. Scattered mild inflammation characterized by erythema and granularity was found in the gastric antrum. Biopsies were taken with a cold forceps for Helicobacter pylori testing. Verification of patient identification for the specimen was done by the physician and nurse using the patient's name, date and medical record number. Estimated blood loss was minimal. The duodenal bulb and second portion of the duodenum were normal. Impression: - LA Grade C reflux esophagitis. Biopsied. - Medium-sized hiatal hernia. - Benign-appearing esophageal stenosis. Dilated. - Gastritis. Biopsied. - Normal duodenal bulb and second portion of the duodenum. Recommendation: - Patient has a contact number available for emergencies. The signs and symptoms of potential delayed complications were discussed with the patient. Return to normal activities tomorrow. Written discharge instructions were provided to the patient. - High fiber diet. - Continue present medications. - Await pathology results. - Repeat upper endoscopy in 1 year to evaluate the response to therapy and depending on the symptoms and clinical response. - Telephone GI clinic for pathology results in 2 weeks. - Return to GI clinic if persistent symptoms or new symptoms. - Return to primary care physician. Procedure Code(s): --- Professional --- 96570, 59, Esophagogastroduodenoscopy, flexible, transoral; with transendoscopic balloon dilation of esophagus (less than 30 mm diameter) 27172, 59, Esophagogastroduodenoscopy, flexible, transoral; with biopsy, single or multiple Diagnosis Code(s): --- Professional --- K21.0, Gastro-esophageal reflux disease with esophagitis K44.9, Diaphragmatic hernia without obstruction or gangrene K22.2, Esophageal obstruction K29.70, Gastritis, unspecified, without bleeding R10.13, Epigastric pain R13.10, Dysphagia, unspecified CPT copyright 2019 [employer]. All rights reserved. The codes documented in this report are preliminary and upon director of physical security review may be revised to meet current compliance requirements. Yao Sanchez MD Yao Sanchez MD 09/06/2021 2:51:10 PM Electronically signed by Yao Sanchez MD Number of Addenda: 0 Note Initiated On: 09/06/2021 1:52 PM Estimated Blood Loss: Estimated blood loss was minimal.
--- NOTE | 2021-09-06 14:59 | ROOR ---
Patient Name: Kj Alfred Procedure Date: 09/06/2021 1:53 PM Date of : 1970 Age: 51 Room: [facility] Gender: Male Note Status: Finalized Procedure: Colonoscopy Indications: Change in bowel habits Providers: Yao Sanchez MD Referring MD: 1. NO/Unknown PCP 1. NO/Unknown PCP, Admin. Requesting Provider: Medicines: Monitored Anesthesia Care Complications: No immediate complications. Procedure: Pre-Anesthesia Assessment: - Prior to the procedure, a History and Physical was performed, and patient medications and allergies were reviewed. The patient is competent. The risks and benefits of the procedure and the sedation options and risks were discussed with the patient. All questions were answered and informed consent was obtained. Patient identification and proposed procedure were verified by the physician, the nurse and the anesthesiologist in the procedure room. Mental Status Examination: alert and oriented. Airway Examination: normal oropharyngeal airway and neck mobility. Respiratory Examination: clear to auscultation. CV Examination: normal. Prophylactic Antibiotics: The patient does not require prophylactic antibiotics. Prior Anticoagulants: The patient has taken no previous anticoagulant or antiplatelet agents. ASA Grade Assessment: II - A patient with mild systemic disease. After reviewing the risks and benefits, the patient was deemed in satisfactory condition to undergo the procedure. The anesthesia plan was to use monitored anesthesia care (MAC). Immediately prior to administration of medications, the patient was re-assessed for adequacy to receive sedatives. The heart rate, respiratory rate, oxygen saturations, blood pressure, adequacy of pulmonary ventilation, and response to care were monitored throughout the procedure. The physical status of the patient was re-assessed after the procedure. The Colonoscope was introduced through the anus and advanced to the terminal ileum, with identification of the appendiceal orifice and IC valve. The colonoscopy was performed without difficulty. The patient tolerated the procedure well. The quality of the bowel preparation was good. The terminal ileum, ileocecal valve, appendiceal orifice, and rectum were photographed. Scope insertion time was 2 minutes. Scope withdrawal time was 9 minutes. The total duration of the procedure was 12 minutes. Findings: The perianal and digital rectal examinations were normal. The terminal ileum appeared normal. Six sessile polyps were found in the descending colon, transverse colon and ascending colon. The polyps were 6 to 15 mm in size. These polyps were removed with a hot snare. Resection and retrieval were complete. To close a defect after polypectomy, three hemostatic clips were successfully placed. There was no bleeding at the end of the procedure. Normal mucosa was found in the entire colon. Biopsies for histology were taken with a cold forceps from the right colon, left colon and rectosigmoid colon for evaluation of microscopic colitis. Verification of patient identification for the specimen was done by the physician and nurse using the patient's name, date and medical record number. Estimated blood loss was minimal. Non-bleeding external and internal hemorrhoids were found during retroflexion. The hemorrhoids were medium-sized. Impression: - The examined portion of the ileum was normal. - Six 6 to 15 mm polyps in the descending colon, in the transverse colon and in the ascending colon, removed with a hot snare. Resected and retrieved. Clips were placed. - Normal mucosa in the entire examined colon. Biopsied. - Non-bleeding external and internal hemorrhoids. Recommendation: - Patient has a contact number available for emergencies. The signs and symptoms of potential delayed complications were discussed with the patient. Return to normal activities tomorrow. Written discharge instructions were provided to the patient. - High fiber diet. - Continue present medications. - Await pathology results. - Repeat colonoscopy in 3 years for surveillance based on pathology results. - Telephone GI clinic for pathology results in 2 weeks. - Return to primary care physician. - Return to GI clinic if persistent symptoms or new symptoms. Procedure Code(s): --- Professional --- 09258, Colonoscopy, flexible; with removal of tumor(s), polyp(s), or other lesion(s) by snare technique 93313, 59, Colonoscopy, flexible; with biopsy, single or multiple Diagnosis Code(s): --- Professional --- K64.8, Other hemorrhoids K63.5, Polyp of colon R19.4, Change in bowel habit CPT copyright 2019 [employer]. All rights reserved. The codes documented in this report are preliminary and upon line maintenance supervisor review may be revised to meet current compliance requirements. Yao Sanchez MD Yao Sanchez MD 09/06/2021 2:59:37 PM Electronically signed by Yao Sanchez MD Number of Addenda: 0 Note Initiated On: 09/06/2021 1:53 PM Estimated Blood Loss: Estimated blood loss was minimal.
[2021-09-06 15:10] VITALS: BP 130/72
== END 2021-09-06 15:22 | disposition home or self-care (01) ==
LOC: M OPP 11:49
PROVIDERS: ATTEND Internal Medicine Gastroenterology
DX: R10.13 Epigastric pain (principal); K64.8 Other hemorrhoids; R19.4 Change in bowel habit; K44.9 Diaphragmatic hernia without obstruction or gangrene; K21.00 Gastro-esophageal reflux disease with esophagitis, without bleeding; K22.2 Esophageal obstruction; K29.70 Gastritis, unspecified, without bleeding; Z88.0 Allergy status to penicillin
CPT/HCPCS: 43239; 43249; 45380; 45385; 88305; J3010

== ENCOUNTER → 2021-09-13 | Outpatient (CLI) | payer BC, OTHER ==
[~2021-09-13] MED LIST changes: +ISOVUE-370 76% 100ML VIAL As Ordered ONE; -NS 1,000 ML IV ONE
--- NOTE | 2021-09-13 11:59 | REPVR ---
PROCEDURE INFORMATION: Exam: CT Neck With Contrast Exam date and time: 09/13/2021 11:38 AM Age: 51 years old Clinical indication: Neck pain; Additional info: Swelling of neck, abn weight loss TECHNIQUE: Imaging protocol: Computed tomography images of the neck with contrast. Radiation optimization: All CT scans at this facility use at least one of these dose optimization techniques: automated exposure control; mA and/or kV adjustment per patient size (includes targeted exams where dose is matched to clinical indication); or iterative reconstruction. Contrast material: ISOVUE 370; Contrast volume: 75 ml; Contrast route: INTRAVENOUS (IV); COMPARISON: Thyroid, ST head+neck US 08/14/2021 9:43 AM FINDINGS: Brain: Visualized brain is within normal limits for age including diffuse involutional change. Orbital cavity: The orbits are intact. Mastoid air cells: The mastoids are well aerated. Paranasal sinuses: Paranasal sinus disease most pronounced in the left maxillary sinus. Nasopharynx: Unremarkable. Dental: There are periapical lucencies adjacent to the mandibular teeth suggestive of dental disease. No complete cortical breakthrough of the maxilla or mandible. Oropharynx: Bilateral cysts soft tissue prominence at the parapharyngeal levels without discrete mass. Direct visualization may be helpful. Hypopharynx: Unremarkable. Larynx: Slight medialization of the right true vocal cord in comparison to the left. Retropharyngeal space: Unremarkable. Submandibular/Parotid glands: Normal. Glands are normal in size. Thyroid: Homogeneous thyroid. Lymph nodes: Small neck nodes without confluent lymphadenopathy. Trachea: Visualized trachea is unremarkable. Lungs: The included lungs are grossly clear. Bones/joints: Degenerative changes along the spine with reversal of the lordosis. Artifact from metal hardware. Vasculature: Carotid vascular calcifications are prominent for age should be followed non emergently with ultrasound. No venous thrombus. Carotid vascular calcifications at the cavernous level. Soft tissues: No focal soft tissue swelling. No abscess. Other findings: Mild motion artifact. IMPRESSION: 1. No dominant mass or confluent lymphadenopathy. 2. No significant soft tissue swelling or abscess and no bony destruction. 3. Dental disease. 4. Carotid vascular calcifications which should be followed with ultrasound. 5. No focal lesions in the lung apices. 6. Bilateral soft tissue prominence at the parapharyngeal levels which can be followed with direct visualization. 7. Slight medialization of the right true vocal cord comparison to the left. Clinical follow-up recommended here. Electronically signed by: Toribio Rivas On 09/13/2021 11:58:52 AM
== END ==
LOC: M RAD 11:08
PROVIDERS: ATTEND Physician Assistant Medical
DX: R22.1 Localized swelling, mass and lump, neck (principal); K08.9 Disorder of teeth and supporting structures, unspecified; J32.9 Chronic sinusitis, unspecified; R63.4 Abnormal weight loss
CPT/HCPCS: 70491; Q9967

== ENCOUNTER → 2021-09-13 | Outpatient (REF) | payer BC, OTHER ==
[~2021-09-13] MED LIST changes: -ISOVUE-370 76% 100ML VIAL As Ordered ONE
== END ==
LOC: M LAB REF 12:20
PROVIDERS: ATTEND Physician Assistant Medical
DX: R19.7 Diarrhea, unspecified (principal)

== ENCOUNTER → 2021-11-14 | Outpatient (REF) | payer OTHER | LOC: M LAB REF 16:16 | PROVIDERS: ATTEND Physician Assistant | DX: Z20.2 Contact with and (suspected) exposure to infections with a predominantly sexual mode of transmission (principal) ==

== ENCOUNTER → 2022-01-20 | Outpatient (CLI) | payer BC, OTHER ==
[~2022-01-20] MED LIST changes: -LISI-898 PO; +LISI5TAB11 PO
== END ==
LOC: M RAD 13:58
PROVIDERS: ATTEND Physician Assistant Medical
DX: R19.7 Diarrhea, unspecified (principal); R14.0 Abdominal distension (gaseous); R10.84 Generalized abdominal pain

== ENCOUNTER → 2022-10-29 | Outpatient (CLI) | payer BC, OTHER | LOC: M LABSMTC 11:43 | PROVIDERS: ATTEND Anesthesiology | DX: Z01.812 Encounter for preprocedural laboratory examination (principal); Z11.52 Encounter for screening for COVID-19 ==

== ENCOUNTER 2022-11-03 11:27 | Day surgery (SDC) | payer BC, OTHER ==
[~2022-11-03] VITALS: Ht 167.6 cm; Wt 99.2 kg
[~2022-11-03 11:27] MED LIST changes: +NS 1,000 ML IV ONE
[2022-11-03] MEDS ORDERED: fentaNYL 100 MCG/2 ML INJECTION As Ordered ONE (13:12)
[2022-11-03] MEDS ORDERED: propofoL 200 MG/20 ML VIAL As Ordered ONE ×2 (13:13→14:00)
[2022-11-03] MEDS ORDERED: GLYCOPYRROLATE INJ 0.2 MG/ML 2 ML VIAL As Ordered ONE (13:31)
[2022-11-03] MEDS ORDERED: ONDANSETRON 4MG 2ML VIAL As Ordered ONE (13:59)
[2022-11-03 14:30] VITALS: BP 120/74
== END 2022-11-03 14:34 | disposition home or self-care (01) ==
LOC: M OPP 11:27
PROVIDERS: ATTEND Internal Medicine Gastroenterology
DX: K21.00 Gastro-esophageal reflux disease with esophagitis, without bleeding (principal); K22.2 Esophageal obstruction; K29.70 Gastritis, unspecified, without bleeding; K44.9 Diaphragmatic hernia without obstruction or gangrene; Z87.891 Personal history of nicotine dependence; Z79.899 Other long term (current) drug therapy; Z88.0 Allergy status to penicillin; I10 Essential (primary) hypertension; F32.9 Major depressive disorder, single episode, unspecified; F41.9 Anxiety disorder, unspecified; J45.909 Unspecified asthma, uncomplicated
CPT/HCPCS: 43239; 45349; 88305; J2405; J3010

== ENCOUNTER → 2024-10-12 | Outpatient (CLI) | payer BC, OTHER ==
[~2024-10-12] MED LIST changes: +MECL-209 PO; -MECL1TAB31 PO; -NS 1,000 ML IV ONE
[2024-10-12 17:05] LABS: BASO % 0.4 % (0.0-1.0); EOS # 0.2 10^3/uL (0.0-0.5); EOS % 2.6 % (0.0-3.0); HEMATOCRIT 44.2 % (42.0-52.0); HEMOGLOBIN 15.4 g/dl (13.5-17.5); LYMPH % 28.2 % (24.0-44.0); MEAN CORPUSCULAR HEMOGLOBIN 30.3 pg (27.0-33.0); MEAN CORPUSCULAR HGB CONC 34.8 g/dl (32.0-36.5); MEAN CORPUSCULAR VOLUME 86.8 fl (80.0-96.0); MONO # 0.6 10^3/uL (0.0-0.8); MONO % 9.2 % (2.0-8.0); NEUTROPHILS # 4.1 10^3/uL (1.5-8.5); PLATELET COUNT, AUTOMATED 245 10^3/uL (150-450); RED BLOOD COUNT 5.09 10^6/uL (4.30-6.10); WHITE BLOOD COUNT 6.9 10^3/uL (4.0-10.0)
[2024-10-12 17:32] LABS: ALKALINE PHOSPHATASE 58 U/L (40-129); ALT/SGPT 36 U/L (7.0-40); AST/SGOT 20 U/L (<34); BILIRUBIN,TOTAL 0.6 MG/DL (0.3-1.2); BLOOD UREA NITROGEN 17 MG/DL (9-23); CALCIUM LEVEL 9.3 MG/DL (8.5-10.1); CARBON DIOXIDE LEVEL 27 MMOL/L (20-31); CHLORIDE LEVEL 106 MMOL/L (98-107); CREATININE FOR GFR 0.87 MG/DL (0.70-1.30); GLOMERULAR FILTRATION RATE > 60.0 (>56); GLUCOSE, FASTING 94 MG/DL (60-100); POTASSIUM SERUM 4.2 MMOL/L (3.5-5.1); SODIUM LEVEL 141 MMOL/L (136-145); TOTAL PROTEIN 7.3 G/DL (5.7-8.2)
[2024-10-12 17:33] LABS: FREE T4 0.92 NG/DL (0.89-1.76); THYROID STIMULATING HORMONE 3.212 uIU/ML (0.55-4.78)
[2024-10-17 14:42] LABS: LYME TOTAL ANTIBODY CIA <= 0.90 Index (<=0.90)
== END ==
LOC: M LAB 16:15
PROVIDERS: ATTEND Nurse Practitioner Family
DX: R53.83 Other fatigue (principal)

== ENCOUNTER → 2025-09-11 | Outpatient (CLI) | payer BC | LOC: M WUC 11:29 | DX: M25.561 Pain in right knee (principal); M17.11 Unilateral primary osteoarthritis, right knee ==